=== PATIENT | female | born 1945 | race Caucasian/White ===

== ENCOUNTER 2019-12-07 08:36 | Observation (INO) | payer MEDICARE ==
[2019-12-07] VITALS (7 sets, daily range): BP systolic 144–168; BP diastolic 57–71
[~2019-12-07] VITALS: Ht 162.6 cm; Wt 100.0 kg
[2019-12-07 09:26] LABS: BASOPHILS % (AUTO) 0.4 % (0-1); EOSINOPHILS # (AUTO) 0.1 X10'3 (0-0.9); EOSINOPHILS % (AUTO) 1.4 % (0-6); HEMATOCRIT 42.3 % (35.0-45.0); HEMOGLOBIN 14.3 g/dl (12.0-16.0); LYMPHOCYTES # (AUTO) 1.8 X10'3 (1.1-4.8); LYMPHOCYTES % (AUTO) 22.7 % (21-51); MEAN CORPUSCULAR HEMOGLOBIN 29.8 PG (27.0-31.0); MEAN CORPUSCULAR HGB CONC 33.7 g/dL (33.0-36.5); MEAN CORPUSCULAR VOLUME 88.5 FL (78-98); MEAN PLATELET VOLUME 7.6 FL (7.4-10.4); MONOCYTES # (AUTO) 0.6 X10'3 (0-0.9); MONOCYTES % (AUTO) 7.7 % (2-12); NEUTROPHILS # (AUTO) 5.3 X10'3 (1.8-7.7); NEUTROPHILS % (AUTO) 67.8 % (42-75); PLATELET COUNT 215 X10'3 (140-440); RED BLOOD COUNT 4.78 X10'6 (4.20-5.60); RED CELL DISTRIBUTION WIDTH 13.9 % (11.5-14.5); WHITE BLOOD COUNT 7.9 X10'3 (4.5-11.0)
[2019-12-07 09:42] LABS: ALANINE AMINOTRANSFERASE 26 U/L (12-78); ALBUMIN 3.9 G/DL (3.4-5.0); ALBUMIN/GLOBULIN RATIO 1.3 (1.1-1.5); ALKALINE PHOSPHATASE 74 IU/L (46-116); ANION GAP 8 (8-16); ASPARTATE AMINO TRANSFERASE 19 U/L (10-37); BILIRUBIN,TOTAL 0.4 MG/DL (0.1-1.0); BLOOD UREA NITROGEN 18 MG/DL (7-18); CALCIUM 9.8 MG/DL (8.5-10.1); CHLORIDE 105 MMOL/L (99-107); CREATININE 0.82 MG/DL (0.40-0.90); GLUCOSE 114 MG/DL (70-104); POTASSIUM 3.6 MMOL/L (3.5-5.1); SODIUM 141 MMOL/L (135-145); TOTAL CARBON DIOXIDE 27.7 MMOL/L (24-32); TOTAL PROTEIN 6.9 G/DL (6.4-8.2); eGFR 68 ML/MIN
[2019-12-07] MEDS ORDERED: aspirin 81mg tab.chew PO ONE (10:00)
[2019-12-07] MEDS ORDERED: ipratropium/albuterol 3ml nebule NEB PRN (10:15)
[2019-12-07] MEDS ORDERED: magnesium 2GM in 50ml NS 50 ML IV PRN (10:15)
[2019-12-07] MEDS ORDERED: magnesium hydroxide 30ml (MOM) UD suspension PO PRN (10:15)
[2019-12-07] MEDS ORDERED: ondansetron/PF 4mg/2ml inj IV PRN (10:15)
[2019-12-07] MEDS ORDERED: metoprolol tartrate 1mg/ml inj IV PRN (10:15)
[2019-12-07] MEDS ORDERED: regadenoson 0.4mg/5ml syringe IV PRN (10:15)
[2019-12-07] MEDS ORDERED: potassium Cl 20 mEq SR tablet PO PRN ×2 (10:15)
[2019-12-07] MEDS ORDERED: aminophylline 250mg/10ml inj. IV PRN (10:15)
[2019-12-07] MEDS ORDERED: nitroGLYCERIN 0.4mg SUBLingual tab SL PRN (10:15)
[2019-12-07] MEDS ORDERED: acetaminophen 325mg tablet PO PRN (10:15)
[2019-12-07] MEDS ORDERED: magnesium Cl slow-release 64mg tablet PO PRN (10:15)
[2019-12-07] MEDS ORDERED: potassium CL 10mEq/100ml bag 100 ML IV PRN ×2 (10:15)
[2019-12-07] MEDS ORDERED: mag hydrox/Alum hydrox/simeth 30ml oral suspension PO PRN (10:15)
[2019-12-07] MEDS ORDERED: magnesium 4gm in 100ml NS 100 ML IV PRN (10:15)
--- NOTE | 2019-12-07 10:27 | NUR ---
PT USES [facility] ON PLACER
[2019-12-07] MEDS ORDERED: METO-384 PO (13:08)
[2019-12-07] MEDS ORDERED: LOSA1TAB41 PO (13:08)
--- NOTE | 2019-12-07 13:20 | NUR ---
Received to room 4022A A/O x4. To [facility] for Laura scan via wheel chair.
[2019-12-07] MEDS ORDERED: FLU VACC QS2020-21(6MOS UP)/PF 60 MCG/0.5 ML SYRINGE IMVAC ONE (13:50)
[2019-12-07] MEDS ORDERED: NITR0.4T51 SL (16:53)
[2019-12-07] MEDS ORDERED: K and/or MAG REPLACEMENT MC SCH (20:00)
[2019-12-07] MEDS ORDERED: enoxaparin 40mg/0.4ml syringe SQ SCH (20:00)
== END 2019-12-07 17:46 | disposition home or self-care (01) ==
LOC: ER 08:37 → ED HOLD 10:15 → ORTHO 4S 13:15
PROVIDERS: ADMIT Family Medicine; ATTEND Family Medicine
DX: R07.89 Other chest pain (principal); Z20.828 Contact with and (suspected) exposure to other viral communicable diseases; I25.10 Atherosclerotic heart disease of native coronary artery without angina pectoris; I10 Essential (primary) hypertension; K21.9 Gastro-esophageal reflux disease without esophagitis; Z23 Encounter for immunization; Z87.891 Personal history of nicotine dependence; Z95.5 Presence of coronary angioplasty implant and graft; Z98.49 Cataract extraction status, unspecified eye; Z79.899 Other long term (current) drug therapy
CPT/HCPCS: 36415; 71045; 78452; 80053; 83880; 84484; 85025; 87081; 87635; 93017; 93306; 94760; 99285; A9500; C9803; G0008; G0378; J2785; Q2039; 93005